=== PATIENT | female | born 1960 | race Caucasian/White ===

== ENCOUNTER → 2016-10-29 | Outpatient (CLI) | payer OTHER | END | disposition home or self-care (01) | LOC: RAD 08:45 | PROVIDERS: ATTEND Oral & Maxillofacial Surgery | DX: M26.621 Arthralgia of right temporomandibular joint (principal); M26.631 Articular disc disorder of right temporomandibular joint; M19.90 Unspecified osteoarthritis, unspecified site | CPT/HCPCS: 70336 ==